=== PATIENT | female | born 1950 | race Native Hawaiian/Other Pacific Islander ===

== ENCOUNTER 2019-08-13 12:47 | Outpatient (CLI) | payer OTHER | END 2019-08-13 18:59 | disposition home or self-care (01) | LOC: MRI 12:47 | DX: M54.16 Radiculopathy, lumbar region (principal) ==

== ENCOUNTER 2020-03-14 10:50 | Outpatient (CLI) | payer OTHER | END 2020-03-14 21:56 | disposition home or self-care (01) | LOC: MRI 10:50 | PROVIDERS: ATTEND Physician Assistant Surgical | DX: M54.12 Radiculopathy, cervical region (principal) ==

== ENCOUNTER 2020-04-28 08:12 | Outpatient (CLI) | payer OTHER | END 2020-04-28 19:46 | disposition home or self-care (01) | LOC: NM 08:12 | PROVIDERS: ATTEND Nurse Practitioner | DX: R10.11 Right upper quadrant pain (principal) | CPT/HCPCS: A9537 ==

== ENCOUNTER 2020-05-06 08:08 | Outpatient (CLI) | payer OTHER | END 2020-05-06 19:31 | disposition home or self-care (01) | LOC: CT 08:08 | PROVIDERS: ATTEND Nurse Practitioner | DX: R10.11 Right upper quadrant pain (principal) | CPT/HCPCS: 36415; 82565; 84520; Q9963 ==

== ENCOUNTER 2020-09-27 08:07 | Outpatient (CLI) | payer OTHER | END 2020-09-27 21:48 | disposition home or self-care (01) | LOC: NM 08:07 | PROVIDERS: ATTEND Internal Medicine Gastroenterology | DX: R11.0 Nausea (principal) | CPT/HCPCS: A9541 ==

== ENCOUNTER 2020-11-12 13:30 | Emergency (ER) | payer OTHER ==
[~2020-11-12] VITALS: Ht 172.7 cm; Wt 83.0 kg
[2020-11-12 15:04] LABS: PLATELET COUNT 298 K/uL (152-353)
[2020-11-12 15:10] LABS: POTASSIUM 4.2 mmol/L (3.6-5.2); SODIUM 132 mmol/L (136-145)
[2020-11-12 15:25] LABS: PARTIAL THROMBOPLASTIN TIME 28.1 SECONDS (24.5-33.6)
[2020-11-12 17:22] VITALS: BP 129/63; TEMP 97
== END 2020-11-12 17:32 | disposition home or self-care (01) ==
LOC: ED 13:30
PROVIDERS: Family Medicine
DX: R41.82 Altered mental status, unspecified (principal); I95.1 Orthostatic hypotension
CPT/HCPCS: 80053; 82550; 84484; 85027; 85610; 85730; 93005; 96360; 99284; J1885

== ENCOUNTER 2020-11-15 08:16 | Outpatient (CLI) | payer OTHER ==
[2020-11-15 09:17] LABS: PLATELET COUNT 267 K/uL (152-353)
[2020-11-15 09:39] LABS: POTASSIUM 4.2 mmol/L (3.6-5.2)
== END 2020-11-15 19:27 | disposition home or self-care (01) ==
LOC: LABW 08:16 → US 08:16
PROVIDERS: ATTEND Internal Medicine
DX: N18.31 Chronic kidney disease, stage 3a (principal)
CPT/HCPCS: 36415; 80053; 81000; 82306; 82330; 82570; 82607; 82728; 82746; 83036; 83540; 83550; 83735; 83970; 84100; 84155; 84439; 84443; 85027; 85652; 86038

== ENCOUNTER 2020-12-09 13:50 | Outpatient (CLI) | payer OTHER | END 2020-12-09 21:44 | disposition home or self-care (01) | LOC: MRI 13:50 | PROVIDERS: ATTEND Physician Assistant | DX: S83.281A Other tear of lateral meniscus, current injury, right knee, initial encounter (principal) ==

== ENCOUNTER 2021-02-03 09:47 | Outpatient (CLI) | payer OTHER | END 2021-02-03 20:15 | disposition home or self-care (01) | LOC: CT 09:47 | PROVIDERS: ATTEND Internal Medicine Cardiovascular Disease | DX: R29.898 Other symptoms and signs involving the musculoskeletal system (principal); R93.89 Abnormal findings on diagnostic imaging of other specified body structures | CPT/HCPCS: 36415; 82565; 84520 ==

== ENCOUNTER 2021-04-19 11:10 | Outpatient (CLI) | payer OTHER ==
[2021-04-19 12:06] LABS: PLATELET COUNT 252 K/uL (152-353)
[2021-04-19 12:14] LABS: POTASSIUM 4.4 mmol/L (3.6-5.2)
== END 2021-04-19 19:37 | disposition home or self-care (01) ==
LOC: LABW 11:10
PROVIDERS: ATTEND Internal Medicine
DX: N18.31 Chronic kidney disease, stage 3a (principal)
CPT/HCPCS: 36415; 80053; 81000; 82306; 82330; 82570; 83735; 83970; 84100; 84155; 85027

== ENCOUNTER 2021-09-19 09:41 | Outpatient (CLI) | payer OTHER ==
[2021-09-19 10:02] LABS: PLATELET COUNT 226 K/uL (152-353)
[2021-09-19 10:12] LABS: POTASSIUM 3.9 mmol/L (3.6-5.2)
== END 2021-09-19 18:51 | disposition home or self-care (01) ==
LOC: LABW 09:41
PROVIDERS: ATTEND Internal Medicine
DX: N18.31 Chronic kidney disease, stage 3a (principal)
CPT/HCPCS: 36415; 80053; 81002; 82306; 82330; 82570; 83735; 83970; 84100; 84156; 85027

== ENCOUNTER 2021-12-29 15:18 | Outpatient (CLI) | payer OTHER ==
[2021-12-29 15:57] LABS: POTASSIUM 4.6 mmol/L (3.6-5.2)
[2021-12-29 16:09] LABS: PLATELET COUNT 364 K/uL (152-353)
== END 2021-12-29 20:34 | disposition home or self-care (01) ==
LOC: LABW 15:18
PROVIDERS: ATTEND Physical Medicine & Rehabilitation Pain Medicine
DX: Z01.818 Encounter for other preprocedural examination (principal); R79.1 Abnormal coagulation profile
CPT/HCPCS: 36415; 80048; 81002; 85027; 85610; 87070

== ENCOUNTER 2022-03-27 15:12 | Outpatient (CLI) | payer OTHER ==
[2022-03-27 15:32] LABS: PLATELET COUNT 323 K/uL (152-353)
[2022-03-27 15:47] LABS: POTASSIUM 4.2 mmol/L (3.6-5.2)
== END 2022-03-27 20:39 | disposition home or self-care (01) ==
LOC: LABW 15:12
PROVIDERS: ATTEND Physical Medicine & Rehabilitation Pain Medicine
DX: Z01.818 Encounter for other preprocedural examination (principal); Z22.322 Carrier or suspected carrier of Methicillin resistant Staphylococcus aureus; R79.1 Abnormal coagulation profile
CPT/HCPCS: 36415; 80048; 81002; 85027; 85610; 87070

== ENCOUNTER 2022-06-15 13:56 | Outpatient (CLI) | payer OTHER ==
[2022-06-15 14:23] LABS: PLATELET COUNT 286 K/uL (152-353)
== END 2022-06-15 20:18 | disposition home or self-care (01) ==
LOC: LABW 13:56
PROVIDERS: ATTEND Internal Medicine
DX: N18.32 Chronic kidney disease, stage 3b (principal)
CPT/HCPCS: 36415; 80053; 81002; 82043; 82306; 82330; 82570; 83735; 83970; 84100; 84156; 85027

== ENCOUNTER → 2022-11-05 | Outpatient (CLI) | payer OTHER ==
[2022-11-05 15:09] LABS: PLATELET COUNT 283 K/uL (152-353)
[2022-11-05 15:23] LABS: POTASSIUM 4.5 mmol/L (3.6-5.2)
== END ==
LOC: LABW 14:55
PROVIDERS: ATTEND Internal Medicine
DX: N18.31 Chronic kidney disease, stage 3a (principal)
CPT/HCPCS: 36415; 80053; 81002; 82306; 82330; 82570; 83735; 83970; 84100; 84156; 85027

== ENCOUNTER 2022-11-21 10:55 | Outpatient (CLI) | payer OTHER | END 2022-11-21 19:03 | disposition home or self-care (01) | LOC: MRI 10:55 | PROVIDERS: ATTEND Nurse Practitioner Adult Health | DX: R20.2 Paresthesia of skin (principal) ==

== ENCOUNTER 2022-12-21 09:45 | Outpatient (CLI) | payer OTHER | END 2022-12-21 18:59 | disposition home or self-care (01) | LOC: CT 09:45 | PROVIDERS: ATTEND Nurse Practitioner Adult Health | DX: R29.6 Repeated falls (principal); R20.2 Paresthesia of skin; R42 Dizziness and giddiness | CPT/HCPCS: 36415; 82565; 84520; Q9963 ==